=== PATIENT | male | born 1960 | race Two or more races ===

== ENCOUNTER 2019-03-25 10:00 | Inpatient (IN) | payer MEDICAID ==
[2019-03-25] MEDS ORDERED: TAMS-12 PO (10:11)
[2019-03-25] MEDS ORDERED: PANTOPRAZOLE 40 MG VIAL ONE (10:28)
[2019-03-25] MEDS ORDERED: PANTOPRAZOLE 40 MG VIAL IV ONE (10:30)
[2019-03-25] MEDS ORDERED: IV NS 0.9% 500 ML BAG IV ONE (10:30)
[2019-03-25] MEDS ORDERED: IV NS 0.9% 1,000 ML IV PRN (12:55)
[2019-03-25] MEDS ORDERED: ONDANSETRON HCL/PF 4 MG/2 ML VIAL IVP PRN (13:00)
[2019-03-25] MEDS ORDERED: MORPHINE SULFATE INJ 2 MG/ML DISP.SYRIN IV PRN (13:00)
[2019-03-25] MEDS: NEXIUM 40 MG VIAL IV SCH (20:52)
[2019-03-26] MEDS ORDERED: SORBITOL SOLUTION 30 ML PO ONE (06:00)
[2019-03-26] MEDS: NEXIUM 40 MG VIAL IV SCH (08:40)
[2019-03-26] MEDS ORDERED: PEG 3350/NA SULF,BICARB,CL/KCL 4,000 ML BOTTLE PO ONE ×2 (12:30→20:00)
[2019-03-26] MEDS: ACETAMINOPHEN 325 MG TABLET PO PRN (17:22)
[2019-03-27] MEDS ORDERED: SORBITOL SOLUTION 30 ML ONE (06:45)
[2019-03-27] MEDS: SORBITOL SOLUTION 30 ML PO SCH ×2 (07:13→09:00)
[2019-03-27] MEDS ORDERED: NEXIUM 40 MG VIAL IV SCH (09:00)
[2019-03-27] MEDS ORDERED: ONDANSETRON HCL/PF 4 MG/2 ML VIAL ONE (09:52)
[2019-03-27] MEDS: ACETAMINOPHEN 325 MG TABLET PO PRN (16:02)
[2019-04-09] MEDS ORDERED: PANT40TA2 PO (14:03)
[2019-04-09] MEDS ORDERED: CLAR500T PO (14:03)
[2019-04-09] MEDS ORDERED: AMOX250C PO (14:03)
== END 2019-03-27 16:15 | disposition home or self-care (01) | DRG 241 ==
DX: K29.71 Gastritis, unspecified, with bleeding (principal); K57.30 Diverticulosis of large intestine without perforation or abscess without bleeding; N40.0 Benign prostatic hyperplasia without lower urinary tract symptoms; R04.0 Epistaxis; Z85.46 Personal history of malignant neoplasm of prostate; T66.XXXS Radiation sickness, unspecified, sequela; K62.89 Other specified diseases of anus and rectum

== ENCOUNTER 2019-04-07 14:32 | Inpatient (IN) | payer MEDICAID ==
[~2019-04-07] VITALS: Ht 180.3 cm; Wt 67.6 kg
[~2019-04-07 14:32] MED LIST: TAMS-12 PO
--- NOTE | 2019-04-07 14:39 | NUR ---
PT BIB SELF, C/O ABD PAIN x 4 DAYS, +NAUSEA, PT IS AAOX4, NOT IN RESPIRATORY DISTRESS, HOOKED TO MONITOR, KEPT RESTED AND COMFORTABLE, WILL CONTINUE TO MONITOR, AWAITING ER MD FOR EVAL.
--- NOTE | 2019-04-07 14:51 | NUR ---
AT BEDSIDE FOR EVAL.
[2019-04-07] MEDS ORDERED: IV NS 0.9% 1,000 ML BAG IV ONE (15:00)
--- NOTE | 2019-04-07 15:10 | NUR ---
IV LINE ESTABLISHED, BLOOD DRAWNED AND SENT TO LAB.
--- NOTE | 2019-04-07 15:14 | NUR ---
PT WHEELED TO CT SCAN VIA [employer].
[2019-04-07 15:15] LABS: BASOPHILS % (AUTO) 0.7 % (0.0-2.0); EOSINOPHILS % (AUTO) 7.7 % (0.0-6.0); HEMATOCRIT 38 % (39-51); HEMOGLOBIN 13.1 g/dL (13.5-17.5); LYMPHOCYTES # (AUTO) 1.2 /CMM (0.8-4.8); LYMPHOCYTES % (AUTO) 29.1 % (20.0-44.0); MEAN CORPUSCULAR HGB CONC 35 g/dl (31.0-36.0); MEAN CORPUSCULAR VOLUME 90 fL (80-96); MONOCYTES # (AUTO) 0.4 /CMM (0.1-1.30); MONOCYTES % (AUTO) 10.6 % (2.0-12.0); NEUTROPHILS # (AUTO) 2.2 /CMM (1.8-8.9); NEUTROPHILS % (AUTO) 51.9 % (43.0-81.0); PLATELET COUNT (AUTO) 262 /CMM (150-450); RED BLOOD CELL COUNT(AUTO) 4.18 MIL/uL (4.5-6.0); WHITE BLOOD COUNT (AUTO) 4.2 K/uL (4.3-11.0)
[2019-04-07 15:30] LABS: ALBUMIN 3.3 g/dL (3.4-5.0); BILIRUBIN,DIRECT 0.1 mg/dL (0.0-0.2); BILIRUBIN,TOTAL 0.7 mg/dL (0.2-1.0); CALCIUM, SERUM 8.3 mg/dL (8.5-10.1); POTASSIUM 4.2 mmol/L (3.5-5.1); TOTAL PROTEIN, SERUM 6.7 g/dL (6.4-8.2)
--- NOTE | 2019-04-07 15:52 | NUR ---
DR HAMILTON PAGED
[2019-04-07] MEDS ORDERED: CIPR500T5 PO (16:17)
[2019-04-07] MEDS ORDERED: ZOLPIDEM TARTRATE 5 MG TABLET PO PRN (17:00)
[2019-04-07] MEDS ORDERED: ONDANSETRON HCL/PF 4 MG/2 ML VIAL IVP PRN (17:00)
[2019-04-07] MEDS ORDERED: ACETAMINOPHEN 325 MG TABLET PO PRN (17:00)
[2019-04-07] MEDS ORDERED: MAG HYDROX/AL HYDROX/SIMETH 30 ML UDC PO PRN (17:00)
[2019-04-07] MEDS ORDERED: HYDROCODONE/APAP 5/325MG 1 EACH TABLET PO PRN (17:00)
[2019-04-07] MEDS ORDERED: Z GUARD REMEDY 2 OZ OINT TP PRN (17:00)
--- NOTE | 2019-04-07 17:41 | NUR ---
CALLED NURSING SUP FOR MS BED
--- NOTE | 2019-04-07 17:57 | NUR ---
RN NOTES RECEIVED REPORT FROM DESMOND RN FOR PATIENT COMING WITH DIAGNOSIS OF LOWER GI BLEED UNDER THE SERVICE OF DR. CASTELLANO WITH MED SURG ACUITY. BED PREPARED. BED ZERO OUT. WILL WAIT FOR PATIENT'S ARRIVAL
--- NOTE | 2019-04-07 17:57 | NUR ---
REPORT GIVEN TO SHILOH CERRATOUS FOR KASEY.
--- NOTE | 2019-04-07 18:25 | NUR ---
RN NOTES RECEIVED PATIENT FROM ER VIA GURNEY, PATIENT AMBULATORY WITH STEADY GAIT, ABLE TO MOVE SELF FROM BED TO BED. ON ROOM AIR, BREATHING UNLABORED. NO COMPLAINTS OF ANY KIND. IV ACCESS NOTED ON THE RAC G 20:, IN PLACE AND PATENT ON FLUSHING. PATIENT ORIENTED TO UNIT AND USE OF CALL LIGHT. SAFETY MEASURES PUT IN PLACE, BED LOW AD LOCK POSITIONED. CALL LIGHT PLACED WITHIN REACH. WILL CONTINUE TO MONITOR PATIENT WHILE WAITING FOR ADMITTING ORDERS
[2019-04-07 18:56] LABS: FERRITIN 63 ng/mL (8-388)
--- NOTE | 2019-04-07 19:10 | NUR ---
RN NOTES RECEIVED ORDER FROM DAVID BAUHG NP FOR STAT GI BLEED SCAN. ORDER NOTED AND CARRIED OUT. ENDORSED TO INCOMING NURSE TO OBTAIN CONSENT
--- NOTE | 2019-04-07 19:19 | NUR ---
RN NOTES ENDORSED PATIENT FOR CONTINUITY OF CARE. NOT ON ANY FORM OF DISTRESS. SAFETY MEASURES OBSERVED AND MAINTAINED. CALL LIGHT WITHIN REACH
[2019-04-07] MEDS: IV NS 0.9% 1,000 ML IV SCH (19:30)
--- NOTE | 2019-04-07 19:30 | NUR ---
BINGO FLOATER OPENING NOTES RECEIVED PATIENT A/O X4, PATIENT SHOWS NO SIGNS OF DISTRESS COMPLAINS OF NO PAIN. PATIENT IS ON ROOM AIR WITH NO SIGNS OF SOB. IV ON RAC #18G PATENT AND FLUSHING WELL. PATIENT IS AMBULATORY WITHOUT ASSISTANCE. SAFETY MEASURES PLACED, BED IS LOW, SIDE RAILS UP X2, CALL LIGHT WITHIN REACH. WILL CONTINUE TO MONITOR.
[2019-04-07 20:00] VITALS: BP 134/72
--- NOTE | 2019-04-07 20:00 | NUR ---
RN NOTE RECEIVED PATIENT IN BED, ALERT/ORIENTED X 4, NO DISTRESS NOTED, DR LANDEROS IS BY BEDSIDE, ORDER FROM [facility] NUCLEAR MEDICINE GI BLEED ACUTE LOSS NOTED, CALLED ELI SENIOR PATROL AGENT AT [phone], ELI WILL BE HERE BY 2200 PM, CHARGE NURSE IS AWARE
[2019-04-07 20:24] LABS: IRON, SERUM 75 ug/dl (50-175); TOTAL IRON BINDING CAPACITY 246 ug/dl (250-450)
--- NOTE | 2019-04-07 20:33 | NUR ---
RN NOTE RECEIVED CALL FROM LUPIS MOYA, PER LUPIS MOYA SHE WILL PUT AN ORDERS FOR EGD AND FLEX SIGMOIDOSCOPY, PER PATIENT HE HAD EGD ON PREVIOUS ADMISSION, NOTIFIED LUPIS MOYA, AWAITING FOR CALL BACK Addendum: 04/07/19 at 2036 by JOSÉ MIGUEL LOPEZ RN CHARGE NURSE MOLINA IS AWARE
--- NOTE | 2019-04-07 22:00 | NUR ---
RN NOTE PATIENT LEFT FOR NUCLEAR MEDICINE GI BLEED SCAN, IN STABLE CONDITION, VITAL SIGNS STABLE, ALL SAFETY MEASURES TAKEN
--- NOTE | 2019-04-07 22:26 | NUR ---
NM: GI BLEEDING IMAGES WAS COMPLETED. TECH:RB
[2019-04-07] MEDS ORDERED: PANTOPRAZOLE 40 MG VIAL IV SCH (22:30)
[2019-04-07] MEDS ORDERED: NA PHOS,M-B/NA PHOS,DI-BA 1 EA ENEMA RC SCH (22:30)
[2019-04-07] MEDS ORDERED: PANTOPRAZOLE 40 MG VIAL ONE (23:51)
[2019-04-08 00:04] LABS: HEMATOCRIT 40 % (39-51); HEMOGLOBIN 13.5 g/dL (13.5-17.5); MEAN CORPUSCULAR HGB CONC 34 g/dl (31.0-36.0); MEAN CORPUSCULAR VOLUME 91 fL (80-96); PLATELET COUNT (AUTO) 270 /CMM (150-450); RED BLOOD CELL COUNT(AUTO) 4.43 MIL/uL (4.5-6.0); WHITE BLOOD COUNT (AUTO) 3.8 K/uL (4.3-11.0)
[2019-04-08 04:00] VITALS: BP 132/62
[2019-04-08] MEDS: IV NS 0.9% 1,000 ML IV SCH ×2 (04:10→14:29)
--- NOTE | 2019-04-08 05:10 | NUR ---
RN NOTE PATIENT REMAINS NPO AFTER MIDNIGHT
[2019-04-08 06:48] LABS: BASOPHILS % (AUTO) 0.9 % (0.0-2.0); EOSINOPHILS % (AUTO) 8.4 % (0.0-6.0); HEMATOCRIT 39 % (39-51); HEMOGLOBIN 13.6 g/dL (13.5-17.5); LYMPHOCYTES # (AUTO) 1.4 /CMM (0.8-4.8); LYMPHOCYTES % (AUTO) 33.4 % (20.0-44.0); MEAN CORPUSCULAR HGB CONC 35 g/dl (31.0-36.0); MEAN CORPUSCULAR VOLUME 90 fL (80-96); MONOCYTES # (AUTO) 0.4 /CMM (0.1-1.30); MONOCYTES % (AUTO) 10.4 % (2.0-12.0); NEUTROPHILS # (AUTO) 1.9 /CMM (1.8-8.9); NEUTROPHILS % (AUTO) 46.9 % (43.0-81.0); PLATELET COUNT (AUTO) 276 /CMM (150-450); RED BLOOD CELL COUNT(AUTO) 4.34 MIL/uL (4.5-6.0); WHITE BLOOD COUNT (AUTO) 4.1 K/uL (4.3-11.0)
[2019-04-08 07:22] LABS: CALCIUM, SERUM 8.4 mg/dL (8.5-10.1); CREATININE 0.8 mg/dL (0.6-1.3); MAGNESIUM 2.1 mg/dL (1.8-2.4); POTASSIUM 3.9 mmol/L (3.5-5.1)
--- NOTE | 2019-04-08 07:57 | NUR ---
RN OPENING NOTES RECEIVED PATIENT RESTING COMFORTABLY IN BED. HE IS AOX4, VERBAL, AND AMBULATORY. HE DENIES ANY PAIN AND SOB AT THIS TIME. HE IS ON RA, TOLERATING WELL. HE IS CURRENTLY NPO. HE HAS A RAC 18 G INFUSING NS AT 100 ML/HR. HE IS SCHEDULED FOR FLEX SIGMOIDOSCOPY TODAY. SKIN IS INTACT. SAFETY MEASURES HAVE BEEN IMPLEMENTED, CALL LIGHT IS WITHIN REACH, BED IS IN LOWEST AND LOCKED POSITION, SIDE RAILS UP X2, WILL CONTINUE TO MONITOR FOR ANY CHANGES
[2019-04-08 08:00] VITALS: BP 119/82
[2019-04-08] MEDS: TAMSULOSIN 0.4 MG CAP.SR.24H PO SCH (09:00)
--- NOTE | 2019-04-08 11:15 | NUR ---
PATIENT SPOKE WITH DR. BLOOM, EGD AND FLEX SIGMOIDOSCOPY HAVE BEEN CANCELLED. WILL CONTINUE TO MONITOR
[2019-04-08 11:49] LABS: HEMATOCRIT 43 % (39-51); HEMOGLOBIN 14.5 g/dL (13.5-17.5); MEAN CORPUSCULAR HGB CONC 34 g/dl (31.0-36.0); MEAN CORPUSCULAR VOLUME 91 fL (80-96); PLATELET COUNT (AUTO) 290 /CMM (150-450); RED BLOOD CELL COUNT(AUTO) 4.75 MIL/uL (4.5-6.0); WHITE BLOOD COUNT (AUTO) 3.9 K/uL (4.3-11.0)
[2019-04-08 12:00] VITALS: BP 131/86
--- NOTE | 2019-04-08 12:39 | NUR ---
PT HAS LEFT THE UNIT FOR PROCEDURE
--- NOTE | 2019-04-08 14:15 | NUR ---
PT HAS RETURNED FROM THE OR IN STABLE CONDITION. HE IS NOW ON A REGULAR DIET. NS RUNNING AT 100 ML/HR. DENIES ANY PAIN OR DISCOMFORT AT THIS TIME, WILL CONTINUE TO MONITOR FOR ANY CHANGES
[2019-04-08 16:00] VITALS: BP 131/80
--- NOTE | 2019-04-08 19:13 | NUR ---
RN CLOSING NOTES PATIENT IS RESTING IN BED COMFORTABLY. HE DENIES ANY PAIN OR DISCOMFORT AT THIS TIME. HE HAD A FLEXIBLE SIGMOIDOSCOPY, STABLE. HE IS NOW ON REGULAR DIET, TOLERATING WELL. PT NEEDS MET. NO ACUTE CHANGES OCCURRED DURING THE SHIFT. VS STABLE. SAFETY MEASURES HAVE BEEN IMPLEMENTED, CALL LIGHT IS WITHIN REACH, BED IS IN LOWEST AND LOCKED POSITION, SIDE RAILS UP X2, PT HAS BEEN ENDORSED TO NIGHTSHIFT RN FOR CONTINUAL CARE.
[2019-04-08 20:00] VITALS: BP 144/81
[2019-04-08] MEDS: AMOXICILLIN TRIHYDRATE 250 MG CAPSULE PO SCH (21:23)
[2019-04-08] MEDS: CLARITHROMYCIN 500 MG TABLET PO SCH (21:23)
[2019-04-09] MEDS: IV NS 0.9% 1,000 ML IV SCH (00:38)
[2019-04-09 04:00] VITALS: BP 132/62
[2019-04-09 07:07] LABS: BASOPHILS % (AUTO) 0.8 % (0.0-2.0); EOSINOPHILS % (AUTO) 6.8 % (0.0-6.0); HEMATOCRIT 40 % (39-51); HEMOGLOBIN 13.8 g/dL (13.5-17.5); LYMPHOCYTES # (AUTO) 1.4 /CMM (0.8-4.8); LYMPHOCYTES % (AUTO) 28.1 % (20.0-44.0); MEAN CORPUSCULAR HGB CONC 34 g/dl (31.0-36.0); MEAN CORPUSCULAR VOLUME 90 fL (80-96); MONOCYTES # (AUTO) 0.5 /CMM (0.1-1.30); MONOCYTES % (AUTO) 11.2 % (2.0-12.0); NEUTROPHILS # (AUTO) 2.6 /CMM (1.8-8.9); NEUTROPHILS % (AUTO) 53.1 % (43.0-81.0); PLATELET COUNT (AUTO) 280 /CMM (150-450); RED BLOOD CELL COUNT(AUTO) 4.46 MIL/uL (4.5-6.0); WHITE BLOOD COUNT (AUTO) 4.9 K/uL (4.3-11.0)
--- NOTE | 2019-04-09 07:17 | NUR ---
RN OPENING NOTES RECEIVED PATIENT RESTING IN BED COMFORTABLY. HE IS AO X4, VERBAL, AND AMBULATORY. HE IS ON RA, TOLERATING WELL, SHOWS NO S/SX OF RESP DISTRESS OR SOB. HE HAS NS INFUSING AT 100 ML/HR THROUGH IV ON RAC 18 G. HE DENIES ANY PAIN OR DISCOMFORT AT THIS TIME. SKIN IS INTACT. SAFETY MEASURES HAVE BEEN IMPLEMENTED, CALL LIGHT IS WITHIN REACH, BED IS IN LOWEST AND LOCKED POSITION, SIDE RAILS UP X2, WILL CONTINUE TO MONITOR FOR CHANGES.
[2019-04-09 07:24] LABS: CALCIUM, SERUM 8.4 mg/dL (8.5-10.1); CREATININE 0.8 mg/dL (0.6-1.3)
[2019-04-09 08:00] VITALS: BP 110/69
[2019-04-09] MEDS ORDERED: IV NS 0.9% 1,000 ML IV PRN (08:39)
[2019-04-09] MEDS ORDERED: METRONIDAZOLE 250 MG TABLET PO SCH (09:00)
[2019-04-09] MEDS ORDERED: PANTOPRAZOLE 40 MG VIAL IV SCH (09:00)
[2019-04-09] MEDS: TAMSULOSIN 0.4 MG CAP.SR.24H PO SCH (09:42)
[2019-04-09] MEDS: CLARITHROMYCIN 500 MG TABLET PO SCH (09:42)
[2019-04-09] MEDS: AMOXICILLIN TRIHYDRATE 250 MG CAPSULE PO SCH (09:42)
--- NOTE | 2019-04-09 10:58 | NUR ---
PATIENT HAS TAKEN A SHOWER INDEPENDENTLY. TOLERATED WELL, WILL CONTINUE TO MONITOR
[2019-04-09] MEDS ORDERED: AMOX250C PO (14:03)
[2019-04-09] MEDS ORDERED: PANT40TA2 PO (14:03)
[2019-04-09] MEDS ORDERED: CLAR500T PO (14:03)
--- NOTE | 2019-04-09 16:00 | NUR ---
PATIENT HAS BEEN DISCHARGED HOME. HE LEFT THE UNIT IN A WHEEL CHAIR IN STABLE CONDITION. GI BLEEDING HAS SUBSIDED. PT IV SITE WAS REMOVED, BELONGINGS LIST WAS CHECKED OFF. EXIT CARE WAS PROVIDED. WENT OVER HIS NEW PRESCRIPTION, PT VERBALIZED UNDERSTANDING OF INSTRUCTIONS. HE WAS PROVIDED WITH CD COPY OF XRAY IMAGING. TO FOLLOW UP WITH PCP WITHIN ONE WEEK
== END 2019-04-09 16:00 | disposition home or self-care (01) | DRG 254 ==
LOC: ER 14:38 → MEDSG1 17:52
PROVIDERS: ADMIT Family Medicine; ATTEND Family Medicine
PROC: 0D5P8ZZ Destruction of Rectum, Via Natural or Artificial Opening Endoscopic (ICD-10-PCS; principal; 2019-04-08)
DX: K62.7 Radiation proctitis (principal); C61 Malignant neoplasm of prostate; D64.9 Anemia, unspecified; K40.90 Unilateral inguinal hernia, without obstruction or gangrene, not specified as recurrent; K57.90 Diverticulosis of intestine, part unspecified, without perforation or abscess without bleeding; N40.0 Benign prostatic hyperplasia without lower urinary tract symptoms; K59.00 Constipation, unspecified; Z92.3 Personal history of irradiation; Y84.2 Radiological procedure and radiotherapy as the cause of abnormal reaction of the patient, or of later complication, without mention of misadventure at the time of the procedure; Y78.8 Miscellaneous radiological devices associated with adverse incidents, not elsewhere classified; Y92.009 Unspecified place in unspecified non-institutional (private) residence as the place of occurrence of the external cause; Z79.899 Other long term (current) drug therapy
CPT/HCPCS: 36415; 80048-TC; 80061-TC; 80076-TC; 82728-TC; 83540-TC; 83735-TC; 84100-TC; 85025-TC; 85027-TC; 87081-TC; A9512; C9113; G0378; J3490; J7030

== ENCOUNTER 2024-01-14 18:26 | Emergency (ER) | payer BC, MEDICAID ==
[~2024-01-14] VITALS: Ht 180.3 cm; Wt 68.0 kg
[~2024-01-14 18:26] MED LIST changes: +AMOX250C PO; +CLAR-45 PO; +PANT40TA2 PO
[2024-01-14 19:30] LABS: BASOPHILS % (AUTO) 0.6 % (0.0-2.0); EOSINOPHILS # (AUTO) 0.4 K/uL (0.0-0.7); EOSINOPHILS % (AUTO) 8.2 % (0.0-6.0); HEMATOCRIT 40 % (39-51); HEMOGLOBIN 13.8 g/dL (13.5-17.5); LYMPHOCYTES # (AUTO) 1.5 K/uL (0.8-4.8); LYMPHOCYTES % (AUTO) 33.4 % (20.0-44.0); MEAN CORPUSCULAR HEMOGLOBIN 31 PG (26.0-33.0); MEAN CORPUSCULAR HGB CONC 35 g/dl (31.0-36.0); MEAN CORPUSCULAR VOLUME 90 fL (80-96); MONOCYTES # (AUTO) 0.5 K/uL (0.1-1.30); MONOCYTES % (AUTO) 10.3 % (2.0-12.0); NEUTROPHILS # (AUTO) 2.2 K/uL (1.8-8.9); NEUTROPHILS % (AUTO) 47.5 % (43.0-81.0); PLATELET COUNT (AUTO) 250 K/uL (150-450); RED BLOOD CELL COUNT(AUTO) 4.43 MIL/uL (4.5-6.0); WHITE BLOOD COUNT (AUTO) 4.6 K/uL (4.3-11.0)
[2024-01-14 20:26] LABS: ALBUMIN 3.1 g/dL (3.4-5.0); BILIRUBIN,DIRECT 0.1 mg/dL (0.0-0.2); BILIRUBIN,TOTAL 0.9 mg/dL (0.2-1.0); CALCIUM, SERUM 9.1 mg/dL (8.5-10.1); CREATININE 0.8 mg/dL (0.6-1.3); TOTAL PROTEIN, SERUM 7.1 g/dL (6.4-8.2)
[2024-01-14 21:29] VITALS: BP 136/74; TEMP 98.6; O2SAT 100
== END 2024-01-14 21:29 | disposition home or self-care (01) ==
LOC: ER 18:27
DX: R20.2 Paresthesia of skin (principal); Z85.46 Personal history of malignant neoplasm of prostate; Z60.2 Problems related to living alone
CPT/HCPCS: 36415; 70450-TC; 80048-TC; 80076-TC; 83735-TC; 85025-TC